=== PATIENT | male | born 1985 ===

== ENCOUNTER → 2018-09-09 21:27 | Outpatient (REF) | payer OTHER, SELFPAY ==
[2018-09-09 22:13] LABS: Add Manual Diff / Slide Review NO; Basophils Percent Auto 0.6 % (0-2); Eosinophils Percent Auto 3.1 % (2-4); Hemoglobin 14.4 g/dL (13.5-17.5); Lymphocytes Percent Auto 46.5 % (25-40); Mean Corpuscular HGB Conc 33.4 % (30-36); Mean Corpuscular Volume 86.6 fL (80-100); Monocytes Percent Auto 7.8 % (3-14); Neutrophils Absolute Auto 1600 /uL (1500-7000); Platelet Count 214 X10^3/uL (150-400); Red Blood Cell Count 4.97 X10^6/uL (4.5-5.9); Red Cell Distribution Width 14.2 % (11.6-14.8); White Blood Cell Count 3.8 X10^3/uL (4.5-11.0)
[2018-09-09 22:20] LABS: Alanine Aminotransferase 31 IU/L (21-72); Albumin 4.5 g/dL (3.5-5.0); Albumin Globulin Ratio 1.7 (1.0-2.8); Alkaline Phosphatase 39 U/L (38-126); Aspartate Aminotransferase 26 IU/L (17-59); BUN Creatinine Ratio 16.3 (6-22); Bilirubin Total 0.4 mg/dL (0.2-1.3); Blood Urea Nitrogen 13 mg/dL (9-20); Calcium 10.2 mg/dL (8.4-10.2); Carbon Dioxide 27 mmol/L (22-32); Chloride 104 mmol/L (98-107); Estimated Glomerular Filt Rate > 60.0 mL/min (>60); Globulin 2.6 g/dL (1.7-4.1); Glucose 85 mg/dL (70-100); HEMOLYSIS < 15 (0-50); Potassium 4.1 mmol/L (3.4-5.1); Sodium 143 mmol/L (137-145); Total Protein 7.1 g/dL (6.3-8.2)
[2018-09-09 22:49] LABS: TSH w/ Reflex to FT4 1.23 uIU/mL (0.47-4.68)
[2018-09-11 16:33] LABS: Sex Hormone Binding Globulin 32 nmol/L (10-50)
[2018-09-14 13:47] LABS: Dehydroepiandrosterone Sulfate 259 mcg/dL (106-464)
[2018-09-14 14:13] LABS: PSA Total 1.07 ng/mL (< 4.01)
[2018-09-14 14:32] LABS: Testosterone Free 52.7 pg/mL (35.0-155.0); Testosterone Total 375 ng/dL (250-1100)
[2018-09-14 15:24] LABS: Estradiol < 15 pg/mL (< 40)
== END ==
LOC: LAB 21:27
PROVIDERS: Visit Provider Naturopath
DX: R68.82 Decreased libido (principal); Z13.89 Encounter for screening for other disorder; F43.23 Adjustment disorder with mixed anxiety and depressed mood; M45.0 Ankylosing spondylitis of multiple sites in spine; R53.83 Other fatigue; G57.01 Lesion of sciatic nerve, right lower limb
CPT/HCPCS: 36415; 80053; 82627; 82670; 82728; 84153; 84154; 84270; 84402; 84403; 84443; 85025